=== PATIENT | female | born 1990 | race Caucasian/White ===

== ENCOUNTER 2018-08-24 10:50 | Emergency (ER) | payer OTHER ==
[2018-08-24 11:07] VITALS: Ht 149.9 cm
[2018-08-24 15:30] VITALS: BP 142/89
== END 2018-08-24 15:30 | disposition home or self-care (01) ==
LOC: ED 10:50
DX: M25.532 Pain in left wrist (principal); M94.0 Chondrocostal junction syndrome [Tietze]
CPT/HCPCS: Q0092